=== PATIENT | male | born 1965 | race Caucasian/White ===

== ENCOUNTER 2024-05-26 21:21 | Emergency (ER) | payer MEDICAID ==
[~2024-05-26] VITALS: Ht 162.6 cm; Wt 90.7 kg
[2024-05-26 21:36] VITALS: BP 142/59; PULSE 60; RESP 20; TEMP 98; O2SAT 97
[2024-05-26 21:48] VITALS: O2SAT 97
[2024-05-26 22:41] LABS: BASOPHILS # (AUTO) 0.1 K/uL (0.00-0.22); BASOPHILS % (AUTO) 0.8 % (0.0-2.0); EOSINOPHILS # (AUTO) 0.7 K/uL (0-0.4); EOSINOPHILS % (AUTO) 7.6 % (0.0-4.0); HEMATOCRIT 39.5 % (36-52); HEMOGLOBIN 13.4 g/dL (12.0-18.0); LYMPHOCYTES # (AUTO) 4.5 K/uL (2.0-11.5); LYMPHOCYTES % (AUTO) 51.5 % (20.5-51.1); MEAN CORPUSCULAR HEMOGLOBIN 33 pg (27-31); MEAN CORPUSCULAR HGB CONC 34 g/dL (33-37); MEAN CORPUSCULAR VOLUME 98.4 fL (80-94); MONOCYTES # (AUTO) 0.6 K/uL (0.8-1.0); MONOCYTES % (AUTO) 7.1 % (1.7-9.3); NEUTROPHILS # (AUTO) 2.9 K/uL (1.8-7.7); PLATELET COUNT (AUTO) 159 K/uL (140-450); RED BLOOD CELL COUNT(AUTO) 4.02 MIL/uL (4.20-6.10); RED CELL DISTRIBUTION WIDTH 13.6 % (11.6-13.7); WHITE BLOOD COUNT (AUTO) 8.8 K/uL (4.8-10.8)
[2024-05-26] MEDS: NACL 0.9% 1,000 ML IV ONE (22:50)
[2024-05-26 23:03] LABS: ANION GAP 9.3 (8-16); CALCIUM 8.1 mg/dL (8.5-10.1); CARBON DIOXIDE 31.4 mmol/L (21-32); CREATININE 1.3 mg/dL (0.6-1.3); POTASSIUM 3.7 mmol/L (3.5-5.1)
[2024-05-26 23:08] LABS: ALBUMIN 3.3 g/dL (3.4-5.0); TOTAL BILIRUBIN 0.2 mg/dL (0.0-1.0); TOTAL PROTEIN, SERUM 6.5 g/dL (6.4-8.2)
[2024-05-26] MEDS: MORPHINE SULFATE 4 MG/ML SYR IVP ONE (23:25)
[2024-05-27 00:34] VITALS: O2SAT 97
[2024-05-27 02:31] LABS: BILIRUBIN,URINE NEGATIVE (NEGATIVE); BLOOD, URINE TRACE-I (NEGATIVE); COLOR,URINE YELLOW (YELLOW); LEUKOCYTE ESTERASE ,URINE TRACE (NEGATIVE); NITRITE, URINE NEGATIVE (NEGATIVE); PH,URINE 7.5 (5.0-9.0); PROTEIN,URINE NEGATIVE (NEGATIVE); UGLUCOSE NEGATIVE (NEGATIVE); UROBILINOGEN,URINE 0.2 EU/dL (0.2 - 1)
[2024-05-27 02:35] LABS: APPEARANCE,URINE SLIGHTLY HAZY (CLEAR)
[2024-05-27 03:11] LABS: RBC,URINE 0-5 /HPF (0-5)
[2024-05-27 03:12] LABS: BACTERIA,URINE FEW /HPF (None Seen); SQUAMOUS EPITHELIAL CELL,UR 0-3 (FEW) /LPF (0-3 (FEW)); TRICHOMONAS,URINE Few /HPF (None Seen)
[2024-05-27] MEDS ORDERED: METR-435 PO (03:31)
[2024-05-27] MEDS ORDERED: TRAM50TA3 PO (03:31)
[2024-05-27 03:47] VITALS: BP 142/59; PULSE 60; RESP 20; TEMP 98; O2SAT 97
== END 2024-05-27 03:47 | disposition home or self-care (01) ==
LOC: MED 21:21
DX: N49.1 Inflammatory disorders of spermatic cord, tunica vaginalis and vas deferens (principal); Z87.442 Personal history of urinary calculi; Z79.899 Other long term (current) drug therapy; Z98.890 Other specified postprocedural states
CPT/HCPCS: 36415; 76705; 80048; 80076; 81001; 82150; 83690; 85025; 87040; 87086; 96361; 96374; 99285; J2270; J7030